=== PATIENT | female | born 1930 | race Caucasian/White ===

== ENCOUNTER 2016-12-31 22:58 | Inpatient (IN) | payer OTHER ==
[~2016-12-31] VITALS: Ht 170.2 cm; Wt 86.2 kg
[~2016-12-31 22:58] MED LIST: CELEBREX200 MG PO; GABAPENTIN300 MG PO
[2017-01-01 00:06] LABS: HEMATOCRIT 43.2 % (36.0-46.0); MCH 30.6 PG (29.0-34.0); MCHC 33.8 G/DL (30.0-36.0); MCV 90.6 FL (83-99); PLATELET COUNT 162 K/uL (156-360); RBC DIS.WIDTH-SD 47.1 % (39-53); RED BLOOD COUNT 4.77 M/uL (3.80-5.20); WHITE BLOOD COUNT 12.2 K/uL (4.1-10.2)
[2017-01-01 00:16] LABS: CHLORIDE 104 mEq/L (99-109); SODIUM 138 mEq/L (136-147)
[2017-01-01 00:18] LABS: GLUCOSE 127 mg/dL (70-99)
[2017-01-01 00:19] LABS: ANION GAP 11 MEQ/L (2-14)
[2017-01-01 00:20] LABS: TOTAL BILIRUBIN 1.1 mg/dL (0.0-1.0)
[2017-01-01 00:21] LABS: ALKALINE PHOSPHATASE 72 IU/L (3-129)
[2017-01-01 00:22] LABS: GFR ESTIMATE (CALCULATED) > 59 mL/min/
[2017-01-01 00:23] LABS: UREA NITROGEN (BUN) 19 mg/dL (9-23)
[2017-01-01 00:25] LABS: LIPASE 4 U/L (1.0-51.0)
[2017-01-01 00:27] LABS: TROP-I INTERPRETATION NEGATIVE; TROPONIN-I < 0.01 ng/mL (0.0-0.30)
[2017-01-01 00:58] LABS: ADD MIUA? YES; BILIRUBIN NEGATIVE; BLOOD NEGATIVE; COLOR YELLOW ((YELLOW)); GLUCOSE (STRIP) NEGATIVE; KETONES NEGATIVE; LEUKOCYTES TRACE; NITRITE NEGATIVE; PROTEIN (STRIP) NEGATIVE
[2017-01-01 01:13] LABS: BACTERIA NONE SEEN /HPF; EPITHELIAL CELLS NONE SEEN /HPF; MUCUS NONE SEEN /LPF; RED BLOOD CELLS 0-5 /HPF (0-5); UCUL ADDED? NO; WHITE BLOOD CELLS 0-5 /HPF (0-5)
[2017-01-01] MEDS ORDERED: XARELTO15 MG PO (01:36)
[2017-01-01] MEDS ORDERED: ERGOCALCIF50000 UNIT PO (01:36)
[2017-01-01] MEDS ORDERED: OMEPRAZOLE40 M1 PO (01:36)
[2017-01-01] MEDS ORDERED: LOPRESSOR25 MG PO (01:37)
[2017-01-01] MEDS ORDERED: SUPER MULTIVIT1 EACH PO (01:37)
[2017-01-01] MEDS ORDERED: CYANOCOBALAM1000 MCG PO (01:37)
[2017-01-01] MEDS ORDERED: ALLEGRA ALLERG180 MG PO (01:37)
[2017-01-01] MEDS ORDERED: CALCIUM 600 +1 EAC2 PO (01:37)
[2017-01-01] MEDS ORDERED: PROLIA60 MG/1 ML SC (01:37)
[2017-01-01] MEDS ORDERED: VITAMIN C1000 MG PO (01:38)
[2017-01-01 02:11] LABS: INTER. NORMALIZED RATIO 1.3; PROTHROMBIN TIME 14.5 SEC (10.2-12.9)
[2017-01-01 02:14] LABS: PTT 34.3 SEC (25-37)
[2017-01-01 04:10] VITALS: BP 125/73
[2017-01-01 07:35] VITALS: BP 116/69
[2017-01-01 09:31] LABS: HEMATOCRIT 41.9 % (36.0-46.0); MCH 29.8 PG (29.0-34.0); MCHC 32.7 G/DL (30.0-36.0); MCV 91.3 FL (83-99); MEAN PLAT.VOLUME 11.9 uM^3 (9.5-12.4); PLATELET COUNT 147 K/uL (156-360); RBC DIS.WIDTH-CV 14.2 % (11.8-14.6); RBC DIS.WIDTH-SD 47.7 % (39-53); RED BLOOD COUNT 4.59 M/uL (3.80-5.20); WHITE BLOOD COUNT 9.7 K/uL (4.1-10.2)
[2017-01-01 09:53] LABS: ALKALINE PHOSPHATASE 57 IU/L (3-129); ANION GAP 8 MEQ/L (2-14); CHLORIDE 107 MEQ/L (99-109); GFR ESTIMATE (CALCULATED) > 59 mL/min/; GLUCOSE 154 mg/dL (70-99); POTASSIUM 3.9 MEQ/L (3.7-5.4); SAMPLE HEMOLYSIS CHECK 0; SAMPLE ICTERIC CHECK 0; SAMPLE LIPEMIA CHECK 0; SODIUM 138 MEQ/L (136-147); TOTAL BILIRUBIN 1.2 MG/DL (0.0-1.0); UREA NITROGEN (BUN) 15 mg/dL (9-23)
[2017-01-01 15:05] VITALS: BP 126/80
[2017-01-01 23:27] VITALS: BP 107/61
[2017-01-02 06:30] LABS: EOSINOPHIL (%) 5.1 % (0-5); EOSINOPHIL COUNT 0.3 K/uL (0-0.3); HEMATOCRIT 40.1 % (36.0-46.0); IMMATURE GRANULOCYTE (%) 0.3 % (0.0-0.7); LYMPHOCYTE COUNT 0.8 K/uL (1.0-2.8); MCH 31.1 PG (29.0-34.0); MCHC 33.2 G/DL (30.0-36.0); MCV 93.7 FL (83-99); MEAN PLAT.VOLUME 12.4 uM^3 (9.5-12.4); MONOCYTE (%) 10.6 % (3-12); MONOCYTE COUNT 0.6 K/uL (0-0.8); NEUTROPHIL (%) 70.2 % (45-76); PLATELET COUNT 132 K/uL (156-360); RBC DIS.WIDTH-CV 14.4 % (11.8-14.6); RBC DIS.WIDTH-SD 49.7 % (39-53); RED BLOOD COUNT 4.28 M/uL (3.80-5.20); WHITE BLOOD COUNT 5.7 K/uL (4.1-10.2)
[2017-01-02 06:57] LABS: ANION GAP 6 MEQ/L (2-14); CHLORIDE 110 MEQ/L (99-109); GFR ESTIMATE (CALCULATED) > 59 mL/min/; POTASSIUM 4.1 MEQ/L (3.7-5.4); SAMPLE HEMOLYSIS CHECK 0; SAMPLE ICTERIC CHECK 0; SAMPLE LIPEMIA CHECK 0; SODIUM 143 MEQ/L (136-147); UREA NITROGEN (BUN) 15 mg/dL (9-23)
[2017-01-02 06:59] LABS: GLUCOSE 106 mg/dL (70-99)
[2017-01-02 07:07] VITALS: BP 141/71
[2017-01-02] MEDS ORDERED: AUGMENTIN875 MG PO (08:19)
== END 2017-01-02 14:38 | disposition home or self-care (01) | DRG 190 ==
LOC: EME → EDBD 22:58 → EDOF 01-01 02:07 → ENRESERV 01-01 02:19 → 5SOUTH 01-01 03:45
PROVIDERS: Emergency Medicine; Internal Medicine; Physician Assistant
DX: J44.0 Chronic obstructive pulmonary disease with (acute) lower respiratory infection (principal); J18.9 Pneumonia, unspecified organism; J98.11 Atelectasis; N39.0 Urinary tract infection, site not specified; I48.2 Chronic atrial fibrillation; I51.7 Cardiomegaly; M41.9 Scoliosis, unspecified; M81.0 Age-related osteoporosis without current pathological fracture; J84.10 Pulmonary fibrosis, unspecified; R09.02 Hypoxemia; Z96.653 Presence of artificial knee joint, bilateral; Z60.2 Problems related to living alone; Z79.01 Long term (current) use of anticoagulants; Z86.711 Personal history of pulmonary embolism; Z88.3 Allergy status to other anti-infective agents; Z88.2 Allergy status to sulfonamides; Z82.49 Family history of ischemic heart disease and other diseases of the circulatory system
CPT/HCPCS: 70450; 71010; 71020; 80048; 80053; 81003; 83605; 83690; 83880; 84484; 85025; 85027; 85610; 85730; 87040; 93005; 94640; 94760; 99202; 99281; 99285; J0456; J0696; J7030; J7050

== ENCOUNTER → 2017-04-01 | Outpatient (CLI) | payer OTHER ==
[~2017-04-01] MED LIST changes: +ALLEGRA ALLERG180 MG PO; +AUGMENTIN875 MG PO; +CALCIUM 600 +1 EAC2 PO; +CYANOCOBALAM1000 MCG PO; +ERGOCALCIF50000 UNIT PO; +LOPRESSOR25 MG PO; +OMEPRAZOLE40 M1 PO; +PROLIA60 MG/1 ML SC; +SUPER MULTIVIT1 EACH PO; +VITAMIN C1000 MG PO; +XARELTO15 MG PO
== END | disposition home or self-care (01) ==
LOC: RAD 11:04
DX: I51.7 Cardiomegaly (principal); J98.4 Other disorders of lung
CPT/HCPCS: 71046